=== PATIENT | female | born 1970 | race Caucasian/White ===

== ENCOUNTER 2021-12-12 08:21 | Emergency (ER) | payer SELFPAY ==
--- NOTE | ~2021-12-12 | XR_ITS ---
EXAMINATION: XR foot RT min 3V DATE: 12/12/2021 09:13 INDICATION: Right foot injury. TECHNIQUE: 4 views of right foot were obtained. COMPARISON: None. FINDINGS: There is a transverse fracture of proximal diaphysis of fifth metatarsal in near-anatomic a lignment. 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 There is an enthesophyt e at posterior aspect of calcaneal tuberosity. IMPRESSION: 1. Nondisplaced transverse fracture of proximal diaphysis of fifth metatarsal. Reviewed, dictated and finalized at location B.
[2021-12-12 08:21] VITALS: BP 147/95; PULSE 78; RESP 16; TEMP 36.6; O2SAT 98
--- NOTE | 2021-12-12 08:46 | ED.LOWEXIN ---
HPI - Extremity Injury (Lower) General Chief Complaint: Extremity Injury, Lower Stated Complaint: Right ankle injury Time Seen by Provider: 12/12/21 08:45 Source: patient and RN notes reviewed Mode of arrival: ambulatory Limitations: no limitations History of Present Illness complaint: ankle injury Onset (ago): day(s) (1) Injury: Right: ankle and foot Type of Injury: inversion Place: home Severity: moderate Relieving factors: rest Exacerbating factors: weight bearing, movement and palpation Context: walking Associated symptoms: able to partially bear weight Other symptoms: none Related Data Allergies Allergy/AdvReac Type Severity Reaction Status Date / Time morphine Allergy Unknown Unknown Verified 06/15/21 10:20 Sulfa (Sulfonamide Allergy Hives Verified 06/15/21 10:20 Antibiotics) Review of Systems Review of Systems: All systems reviewed & are unremarkable except as noted in HPI and below Constitutional: Constitutional: Denies chills and Denies fever(s) Genitourinary: Genitourinary: Reports hematuria and Reports nocturia (x 1 week) [facility] Past Medical History Medical History Anxiety Asthma GERD (gastroesophageal reflux disease) History of depression Hypothyroidism delivered by caesarean section, 1,000-1,249 grams, 29-30 completed weeks 1991 delivered by caesarean section, 1,000-1,249 grams, 29-30 completed weeks 1993 Spinal stenosis of lumbar region with neurogenic claudication Surgical History Surgical History H/O: hysterectomy 1999 History of partial hysterectomy 1997 Family History Family History Mother Hypertension Family history of heart disease in male family member before age 55 Patient's mother is in good health Cerebrovascular accident Family history of type 2 diabetes mellitus Father Family history of heart disease in male family member before age 55 Sibling Patient's brother is in good health Mother Diabetes mellitus Hypertension Asthma Father Family history of alcoholism Other Family history of cardiovascular disease Social History Social History Social History: -live alone with grand-daughter. 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 Gender identity (if verbalized by the patient): Female Sexual Orientation (if Verbalized by the Patient): Lesbian, Suero, or Homosexual Agree to blood products: Yes Exam Const: General: healthy appearing, no acute distress and alert Nutritional Appearance: well nourished Orientation/consciousness: patient oriented x3 Limitations: no limitations HENMT: Head: normal to inspection Ears: external ears normal Eyes: Conjunctivae: conjunctivae normal Pupils: Equal, round and reactive pupils present EOM: EOMs intact bilaterally Neck: Neck: normal visual inspection Resp: Effort & Inspection: normal respiratory effort Auscultation: clear to auscultation bilaterally Cardio: Rate: regular rate Rhythm: regular rhythm GI: GI Palp: Yes Soft to palpation and No Tenderness to palpation present (GI) Auscultation: normal bowel sounds Back/Spine/Pelvis: Cervical Spine: cervical ROM normal Thoracic/Lumbar Spine: thoraco-lumbar ROM normal Skin: General skin exam: normal color Rashes: no rashes Neuro: General: patient oriented x3, moves all extremities, no focal motor deficits and CN's II-XI intact bilaterally Speech: normal speech Extrem: General: normal exam except as noted Right lower extremity: ankle Details: n
[2021-12-12 09:24] LABS: Appearance Urine Slightly Cloudy (Clear); Bilirubin Urine Negative (Negative); Blood Urine 3+ (Negative); Glucose Urine UA Negative (Negative); Ketones Urine Negative (Negative); Leukocyte Esterase Ur 3+ LEU/UL (Negative); Nitrate Urine Negative (Negative); Protein Urine Negative (Negative); Urobilinogen Urine 0.2 mg/dL (0.2-1.0); pH Urine 7.5 (5.0-8.0)
[2021-12-12 09:29] LABS: Add Urine Microscopic? YES; Color Urine Light Yellow (Yellow)
[2021-12-12 09:30] LABS: Bacteria Urine 3+ /hpf; Squamous Epithelial Cell Urine Moderate /hpf (Few); WBC Urine 31-50 /hpf (0-3)
--- NOTE | 2021-12-12 09:34 | PC.NURSE ---
PT HAS RETURNED FROM RADIOLOGY, IS AWAITING URINE RESULTS. PT REPORTED TO ERP THAT SHE HAS NOTICED BLOOD IN HER URINE AND FREQUENCY X 1 WEEK.
[2021-12-12 09:50] VITALS: BP 148/98; PULSE 72; RESP 16; O2SAT 99
--- NOTE | 2021-12-12 10:11 | PC.NURSE ---
+PMS POST BOOT APPLICATION .
== END 2021-12-12 09:50 | disposition home or self-care (01) ==
PROVIDERS: Emergency Provider Emergency Medicine; PCP Family Medicine
DX: S92.354A Nondisplaced fracture of fifth metatarsal bone, right foot, initial encounter for closed fracture (principal); N39.0 Urinary tract infection, site not specified; J45.909 Unspecified asthma, uncomplicated; K21.9 Gastro-esophageal reflux disease without esophagitis; E03.9 Hypothyroidism, unspecified; M48.062 Spinal stenosis, lumbar region with neurogenic claudication; F41.9 Anxiety disorder, unspecified; F32.A Depression, unspecified; F17.290 Nicotine dependence, other tobacco product, uncomplicated; X50.1XXA Overexertion from prolonged static or awkward postures, initial encounter
CPT/HCPCS: 73630; 81001; 87086; 99284; L2112

== ENCOUNTER 2022-04-22 16:16 | Emergency (ER) | payer SELFPAY ==
--- NOTE | ~2022-04-22 | XR_ITS ---
EXAMINATION: XR chest 1V portable Exam Date/Time: 04/22/2022 16:26 INSIDE SALES ADVISOR HISTORY: cough, dyspnea Comparison: 06/29/2011. RESULT: Lines, tubes, and devices: None. Lungs and pleura: Low volumes with crowding, otherwise clear. Cardiomediastinal silhouette: Stable. Other: No acute osseous or upper abdominal finding. IMPRESSION: No acute cardiopulmonary process. Reviewed, dictated and finalized at location K. DE SALES ADVISOR
[2022-04-22 16:20] VITALS: BP 148/100; PULSE 75; RESP 20; TEMP 36.4; O2SAT 97
--- NOTE | 2022-04-22 16:30 | ECG_ITS ---
Measurements Intervals [place] Rate: 68 P: 32 CT: 196 QRS: -7 QRSD: 110 T: 17 QT: 407 QTc: 436 Interpretive Statements SINUS RHYTHM LOW QRS VOLTAGE IN PRECORDIAL LEADS [QRS DEFLECTION < 1.0 mV IN CHEST LEADS] POOR R-WAVE PROGRESSION NO PREVIOUS ECG AVAILABLE FOR COMPARISON Electronically Signed On 04-22-2022 18:43:19 BOILER COVERER HELPER by Cassidy Espinoza M.D.
--- NOTE | 2022-04-22 16:31 | ED.GENADULT ---
HPI - General Adult General Chief complaint: Upper Respiratory Infection Stated complaint: uri Time Seen by Provider: 04/22/22 16:20 History of Present Illness HPI narrative: Keegan is a 52F with a PMH of asthma, HLD, hypothyroidism, GERD and spinal stenosis that presented to the ED with 10 days or so of URI type symptoms. It started with a fever, fatigue, cough and congestion. However, now it has progressed to weakness, dyspnea and intermittent chest pain. Related Data Allergies Allergy/AdvReac Type Severity Reaction Status Date / Time morphine Allergy Unknown Unknown Verified 01/11/22 14:10 Sulfa (Sulfonamide Allergy Hives Verified 01/11/22 14:10 Antibiotics) Review of Systems Review of Systems: All systems reviewed & are unremarkable except as noted in HPI and below PMFSH Past Medical History Medical History Anxiety Asthma GERD (gastroesophageal reflux disease) History of depression Hypothyroidism delivered by caesarean section, 1,000-1,249 grams, 29-30 completed weeks 1991 delivered by caesarean section, 1,000-1,249 grams, 29-30 completed weeks 1993 Spinal stenosis of lumbar region with neurogenic claudication Surgical History Surgical History H/O: hysterectomy 1999 History of partial hysterectomy 1997 Status post right foot surgery Family History Family History Mother Hypertension Family history of heart disease in male family member before age 55 Patient's mother is in good health Cerebrovascular accident Family history of type 2 diabetes mellitus Father Family history of heart disease in male family member before age 55 Sibling Patient's brother is in good health Mother Diabetes mellitus Hypertension Asthma Father Family history of alcoholism Other Family history of cardiovascular disease Social History Social History Social History: -live alone with grand-daughter. Smoking status: Current every day smoker Tobacco type: e-cigarettes/vaping Second hand tobacco smoke exposure: No Smoking end date: 03/11/14 Alcohol intake: current Alcohol use details: 1/2 glass wine, twice a year Substance use: never Substance use type: does not use Lack of Transportation: No Lack of Food: Never True Current Housing: I Have Housing Concerned About Future Housing: No Difficulty Paying Gas/Electric Bills: No Difficulty Paying for Meds: No Currently Unemployed: No Education: High School Diploma/GED Difficulty w/ Childcare or Family Care: No Living arrangements: with family Occupation/Education: occupation 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 Gender identity (if verbalized by the patient): Female Sexual Orientation (if Verbalized by the Patient): Lesbian, Suero, or Homosexual Agree to blood products: Yes Exam Const: General: healthy appearing and no acute distress Nutritional Appearance: well nourished Other: sitting in the chair HENMT: Head: normal to inspection Ears: external ears normal Eyes: Conjunctivae: conjunctivae normal Pupils: Equal, round and reactive pupils present Neck: Neck: normal visual inspection Chest: Chest palpation & inspection: normal inspection of the chest Resp: Effort & Inspection: normal respiratory effort Auscultation: clear to auscultation bilaterally Cardio: Rate: regular rate Rhythm: regular rhythm GI: Inspection: non-distended Skin: General skin exam: normal color Rashes: no rashes Neuro: General: patient oriented x3 and moves all extremities Extrem: General: normal to inspection Psych: Mental Status: mental status grossly normal Affect: normal affect Course Course Emergency Course: Ordered labs, CXR,
--- NOTE | 2022-04-22 16:45 | PC.NURSE ---
report to ashwin rao. no questions or concerns
[2022-04-22 16:58] LABS: Basophils Absolute Auto 0.07 K/mm3 (0.00-0.10); Basophils Percent Auto 0.7 % (0.0-1.0); Eosinophils Absolute Auto 0.38 K/mm3 (0.02-0.50); Hematocrit 41.7 % (35.0-49.0); Hemoglobin 13.9 g/dL (12.0-15.0); Immature Granulocyte Absolute 0.03 K/mm3 (0.00-0.00); Immature Granulocyte Percent A 0.3 % (0.0-0.0); Lymphocytes Absolute Auto 2.19 K/mm3 (1.10-4.50); Lymphocytes Percent Auto 23.1 % (18.0-42.0); Mean Corpuscular HGB Conc 33.3 g/dL (32.0-36.0); Mean Corpuscular Hemoglobin 31.5 pg (27.0-31.0); Mean Corpuscular Volume 94.6 fL (78.0-102.0); Mean Platelet Volume 9.8 fl (9.2-11.8); Monocytes Absolute Auto 0.96 K/mm3 (0.10-0.90); Monocytes Percent Auto 10.1 % (2.0-11.0); Neutrophils Absolute Auto 5.9 K/mm3 (1.7-7.2); Neutrophils Percent Auto 61.8 % (50.0-70.0); Platelet Count Result 319 K/mm3 (150-420); Red Blood Count 4.41 M/mm3 (4.20-5.40); Red Cell Distribution Width 12.9 % (11.6-14.4); White Blood Count 9.5 K/mm3 (4.8-10.8)
[2022-04-22 16:59] LABS: Add Urine Microscopic? YES; Bilirubin Urine Negative (Negative); Blood Urine 2+ (Negative); Color Urine Light Yellow (Yellow); Glucose Urine UA Negative (Negative); Ketones Urine Negative (Negative); Leukocyte Esterase Ur 3+ LEU/UL (Negative); Nitrate Urine Negative (Negative); Protein Urine Negative (Negative); Specific Grav Ur 1.015 (1.010-1.020); Urobilinogen Urine 0.2 mg/dL (0.2-1.0)
[2022-04-22 17:11] LABS: Appearance Urine Slightly Cloudy (Clear); WBC Clumps Urine Present /hpf; WBC Urine 21-30 /hpf (0-3)
[2022-04-22 17:12] LABS: Bacteria Urine 1+ /hpf; Squamous Epithelial Cell Urine Few /hpf (Few)
[2022-04-22 17:14] LABS: Influenza A QL RT-PCR Negative (Negative); Influenza B QL RT-PCR Negative (Negative); SARS-CoV-2 RNA PCR Negative (Negative)
[2022-04-22 17:15] LABS: RSV RNA, RT-PCR Negative (Negative)
[2022-04-22 17:19] LABS: Alanine Aminotransferase 26 U/L (14-59); Albumin Level 3.5 g/dL (3.4-5.0); Alkaline Phosphatase 82 U/L (46-116); Anion Gap 9 mmol/L (8-16); Aspartate Amino Transferase 13 U/L (15-37); Bilirubin,Total 0.4 mg/dL (0.00-1.00); Blood Urea Nitrogen 17 mg/dL (7-18); Calcium 8.4 mg/dL (8.5-10.1); Carbon Dioxide 26 mmol/L (21-32); Chloride 102 mmol/L (98-108); Estimated CRCL calculation 76 ml/min; Estimated Glomerular Filt Rate > 60; Glucose 92 mg/dL (70-99); NT Pro B Type Natriuretic Pept 54 pg/mL (0-125); Osmolality Calculated 285 mOsm/kg (285-295); Potassium 3.9 mmol/L (3.5-5.1); Sodium 137 mmol/L (136-145); Total Protein 7.4 g/dL (6.4-8.2); Troponin I < 4.0 ng/L (0.00-60.4)
[2022-04-22] MEDS: cefTRIAXone 1 GM VIAL IM (17:55)
[2022-04-22] MEDS: LIDOCAINE HCL 1% LOCAL INJ 10 ML VIAL 2.1 ML INFILTRATE (17:56)
[2022-04-22 17:59] VITALS: BP 139/89; PULSE 74; RESP 18; TEMP 36.7; O2SAT 98
--- NOTE | 2022-04-25 12:43 | PC.NURSE ---
FINAL URINE CULTURE RESULTS: GREATER THAN 100,000 CFU/ML OF GROUP B STREP ISOLATED. PER DR OCASIO NO ACTION NEEDED.
== END 2022-04-22 18:04 | disposition home or self-care (01) ==
PROVIDERS: Emergency Provider Family Medicine
DX: J06.9 Acute upper respiratory infection, unspecified (principal); N39.0 Urinary tract infection, site not specified; E03.9 Hypothyroidism, unspecified; J45.909 Unspecified asthma, uncomplicated; F17.290 Nicotine dependence, other tobacco product, uncomplicated; Z20.822 Contact with and (suspected) exposure to COVID-19
CPT/HCPCS: 36415; 71045; 80053; 81001; 83880; 84484; 85025; 87077; 87086; 87088; 87637; 93005; 96372; 99284; J0696

== ENCOUNTER 2022-08-20 14:52 | Outpatient (CLI) | payer SELFPAY ==
[2022-08-20 19:10] LABS: Basophils Absolute Auto 0.1 K/mm3 (0.0-0.1); Basophils Percent Auto 0.8 % (0.2-1.2); Eosinophils Absolute Auto 0.3 K/mm3 (0-0.3); Eosinophils Percent Auto 3.8 % (0-4.4); Hematocrit 43.1 % (37.0-47.0); Hemoglobin 14.3 g/dL (12.0-15.0); Immature Granulocyte Absolute 0.03 K/mm3 (0.00-0.031); Immature Granulocyte Percent A 0.3 % (0-0.5); Lymphocytes Absolute Auto 2.43 K/mm3 (0.9-3.2); Lymphocytes Percent Auto 27.4 % (18.3-44.2); Mean Corpuscular HGB Conc 33.2 g/dl (32-36); Mean Corpuscular Hemoglobin 31.2 pg (26-34); Mean Corpuscular Volume 94.1 fl (80-100); Mean Platelet Volume 10.9 fl (7.4-10.4); Monocytes Percent Auto 11.5 % (2.6-8.5); Neutrophils Percent Auto 56.2 % (45.5-73.1); Platelet Count Result 337 k/mm3 (150-375); Red Blood Count 4.58 M/mm3 (4.2-5.4); Red Cell Distribution Width 13.7 % (11.5-14.5); White Blood Count 8.9 K/mm3 (4.5-10.0)
[2022-08-20 21:01] LABS: Magnesium 2.1 mg/dL (1.6-2.3)
[2022-08-20 21:30] LABS: Vitamin D 25 Hydroxy 14.5 ng/mL
== END 2022-08-20 14:53 | disposition home or self-care (01) ==
LOC: ANHGOSHLAB 14:54
PROVIDERS: PCP Family Medicine; Visit Provider Nurse Practitioner Family
DX: Z00.00 Encounter for general adult medical examination without abnormal findings (principal); Z12.31 Encounter for screening mammogram for malignant neoplasm of breast; E53.8 Deficiency of other specified B group vitamins; G25.81 Restless legs syndrome
CPT/HCPCS: 36415; 82306; 82607; 83735; 85025

== ENCOUNTER 2023-08-14 19:26 | Emergency (ER) | payer OTHER, SELFPAY ==
--- NOTE | ~2023-08-14 | XR_ITS ---
XR chest 1V portable Ordering provider: Bruno Villa MD History: 53 years Female with . RT upper back/CP . Comparison: April 22, 2022 FINDINGS: MEDIASTINUM: The cardiac silhouette is not enlarged. LUNGS: No infiltrates, effusions or pneumothorax. OTHER: Degenerative spine. No free air under the diaphragm. IMPRESSION: No acute cardiopulmonary pathology. Reviewed, dictated and finalized at location A.
[2023-08-14 19:26] VITALS: BP 174/112; PULSE 82; RESP 18; TEMP 36.6; O2SAT 97
[2023-08-14 19:29] VITALS: BP 147/112; PULSE 78; RESP 20; TEMP 36.9; O2SAT 97
--- NOTE | 2023-08-14 19:34 | PC.NURSE ---
ER Provider at the bedside
--- NOTE | 2023-08-14 19:41 | ECG_ITS ---
[address] Test Date: 2023-08-14 Pat Name: Keegan Barraza Department: Room: Gender: F Practice Office Associate: : [id number] Requested By: Bruno Moncada Order Number: [id number] Reading MD: Bear Mauricio M.D. Measurements Intervals [place] Rate: 67 P: 43 MO: 207 QRS: 2 QRSD: 110 T: 26 QT: 396 QTc: 420 Interpretive Statements SINUS RHYTHM LOW QRS VOLTAGE IN PRECORDIAL LEADS [QRS DEFLECTION < 1.0 mV IN CHEST LEADS] INCOMPLETE RIGHT BUNDLE BRANCH BLOCK ANTERIOR MYOCARDIAL INFARCTION , PROBABLY OLD [40+ ms Q WAVE AND/OR ST/T ABNORMALITY IN V3/V4] No previous ECG available for comparison Electronically Signed On 08-15-2023 13:32:43 CDT by Bear Mauricio M.D.
--- NOTE | 2023-08-14 19:45 | PC.NURSE ---
amanda Dorado, at the bedside doing EKG.
--- NOTE | 2023-08-14 19:51 | PC.NURSE ---
xray at the bedside
--- NOTE | 2023-08-14 19:56 | PC.NURSE ---
patient ambulated to the bathroom to give urine sample
--- NOTE | 2023-08-14 20:06 | PC.NURSE ---
blood work sent to lab
[2023-08-14 20:07] LABS: Basophils Absolute Auto 0.06 K/mm3 (0.00-0.10); Basophils Percent Auto 0.6 % (0.0-1.0); Eosinophils Absolute Auto 0.43 K/mm3 (0.02-0.50); Eosinophils Percent Auto 4.2 % (1.0-6.0); Hematocrit 42.8 % (35.0-49.0); Hemoglobin 14.3 g/dL (12.0-15.0); Immature Granulocyte Absolute 0.03 K/mm3 (0.00-0.00); Immature Granulocyte Percent A 0.3 % (0.0-0.0); Lymphocytes Absolute Auto 2.87 K/mm3 (1.10-4.50); Lymphocytes Percent Auto 28.1 % (18.0-42.0); Mean Corpuscular HGB Conc 33.4 g/dL (32-36); Mean Corpuscular Hemoglobin 31.3 pg (27.0-31.0); Mean Corpuscular Volume 93.7 fL (78.0-102.0); Monocytes Absolute Auto 0.98 K/mm3 (0.10-0.90); Monocytes Percent Auto 9.6 % (2.0-11.0); Neutrophils Absolute Auto 5.86 K/mm3 (1.70-7.20); Neutrophils Percent Auto 57.2 % (50.0-70.0); Platelet Count Result 345 K/mm3 (150-420); Red Blood Count 4.57 M/mm3 (4.20-5.40); Red Cell Distribution Width 13.6 % (11.6-14.4); White Blood Count 10.2 K/mm3 (4.8-10.8)
[2023-08-14 20:08] LABS: Appearance Urine Sl Cloudy (Clear); Bilirubin Urine Negative (Negative); Blood Urine 3+ (Negative); Color Urine Yellow (Yellow); Glucose Urine UA Negative (Negative); Ketones Urine Negative (Negative); Leukocyte Esterase Ur 3+ LEU/UL (Negative); Nitrate Urine Negative (Negative); Protein Urine Negative (Negative); Urobilinogen Urine 0.2 mg/dL (0.2-1.0)
[2023-08-14] MEDS: KETOROLAC 15 MG/ML VIAL (*BKC) IV PUSH (20:09)
[2023-08-14] MEDS: ACETAMINOPHEN 500 MG TABLET 1000 MG PO (20:09)
--- NOTE | 2023-08-14 20:14 | PC.NURSE ---
patient declined the valium. states i have to drive home. i dont want to be loopy . ER provider notified
--- NOTE | 2023-08-14 20:20 | ED.GENADULT ---
HPI - General Adult General Chief complaint: Back Pain/Injury Stated complaint: flank pain Time Seen by Provider: 08/14/23 19:44 History of Present Illness HPI narrative: This is a 53-year-old female presenting ED with chief complaint of back and flank pain. Patient on the right side of patient's back underneath her shoulder blades she has pain that she describes sharp. It is worse with movement. It started after she moved, associated with shortness of breath. She denies fevers chills cough or lower extremity edema. She does have remote history of a unprovoked DVT T/ PE at 20 years of age. Patient also has been having urinary urgency and frequency for the last several weeks. These have been treated with 2 rounds of antibiotics by her primary care physician but her symptoms have not resolved. Related Data Allergies Allergy/AdvReac Type Severity Reaction Status Date / Time morphine Allergy Unknown Unknown Verified 05/31/23 10:48 Sulfa (Sulfonamide Allergy Hives Verified 05/31/23 10:48 Antibiotics) [facility] Past Medical History Medical History Anxiety Asthma GERD (gastroesophageal reflux disease) History of depression Hypothyroidism delivered by caesarean section, 1,000-1,249 grams, 29-30 completed weeks 1991 delivered by caesarean section, 1,000-1,249 grams, 29-30 completed weeks 1993 Spinal stenosis of lumbar region with neurogenic claudication Surgical History Surgical History H/O: hysterectomy 1999 History of partial hysterectomy 1997 Status post right foot surgery Family History Family History Mother Hypertension Family history of heart disease in male family member before age 55 Patient's mother is in good health Cerebrovascular accident Family history of type 2 diabetes mellitus Father Family history of heart disease in male family member before age 55 Sibling Patient's brother is in good health Mother Diabetes mellitus Hypertension Asthma Father Family history of alcoholism Other Family history of cardiovascular disease Social History Social History Social History: -live alone with grand-daughter. Smoking status: Current every day smoker Tobacco type: e-cigarettes/vaping Second hand tobacco smoke exposure: No Smoking end date: 03/11/14 Alcohol intake: current Alcohol use details: 1/2 glass wine, twice a year Substance use: never Substance use type: does not use Lack of Transportation: No Lack of Food: Never True Current Housing: I Have Housing Concerned About Future Housing: No Difficulty Paying Gas/Electric Bills: No Difficulty Paying for Meds: No Currently Unemployed: No Education: High School Diploma/GED Difficulty w/ Childcare or Family Care: No Living arrangements: with family Occupation/Education: occupation 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 Patient groans when going from standing to sitting. Head: atraumatic. EYES: EOMI, NOSE: Atraumatic NECK/back: Trachea midline RESPIRATORY: No increased rate of breathing, CTAB, speaking in full sentences. CARDIOVASCULAR: RRR, ABDOMINAL: Non-distended MUSCULOSKELETAl: No obvious deformities, tenderness to palpation along the right paraspinal muscles in the thoracic region, no overlying skin changes. NEURO: Alert. Moving 4/4 extremities SKIN:: Warm, dry. Normal color PSYCHIATRIC: Normal affect Course Vital Signs Vital signs: Vital Signs Temperature 97.9 F 08/14/23 19:26 Pu
[2023-08-14 20:21] LABS: Add Urine Microscopic? YES; Bacteria Urine 2+ /hpf; INR 0.9; Partial Thromboplastin Time 31.6 Sec (23.9-30.70); Prothrombin Time 10.3 Seconds (9.50-12.1); Squamous Epithelial Cell Urine Rare /hpf (Few); WBC Urine 31-50 /hpf (0-3)
[2023-08-14 20:22] LABS: D Dimer 0.35 mg/L (0.19-0.50)
[2023-08-14 20:34] LABS: Alanine Aminotransferase 35 U/L (14-59); Albumin Level 3.5 g/dL (3.4-5.0); Alkaline Phosphatase 86 U/L (46-116); Anion Gap 8 mmol/L (4-12); Aspartate Amino Transferase 21 U/L (15-37); Bilirubin,Total 0.2 mg/dL (0.00-1.00); Blood Urea Nitrogen 15 mg/dL (7-18); Carbon Dioxide 28 mmol/L (21-32); Chloride 103 mmol/L (98-108); Estimated CRCL calculation 79 ml/min; Estimated Glomerular Filt Rate 58; Glucose 98 mg/dL (70-99); Lipase 59 U/L (16-77); NT Pro B Type Natriuretic Pept 29 pg/mL (0-125); Osmolality Calculated 288 mOsm/kg (285-295); Potassium 4.1 mmol/L (3.5-5.1); Sodium 139 mmol/L (136-145); Total Protein 7.6 g/dL (6.4-8.2)
[2023-08-14 20:35] LABS: Magnesium 1.9 mg/dL (1.8-2.4); Troponin I < 4.0 ng/L (0.00-60.4)
[2023-08-14 21:41] VITALS: BP 142/97; PULSE 80; RESP 18; O2SAT 100
--- NOTE | 2023-08-17 12:08 | PC.NURSE ---
Final urine culture report, No growth, no further action or treatment needed.
== END 2023-08-14 21:42 | disposition home or self-care (01) ==
PROVIDERS: Emergency Provider Emergency Medicine; PCP Family Medicine
DX: M54.9 Dorsalgia, unspecified (principal); N39.0 Urinary tract infection, site not specified; E03.9 Hypothyroidism, unspecified; F17.210 Nicotine dependence, cigarettes, uncomplicated
CPT/HCPCS: 36415; 71045; 80053; 81001; 83690; 83735; 83880; 84484; 85025; 85380; 85610; 85730; 87086; 93005; 96365; 96375; 99284; J0696; J1885

== ENCOUNTER 2023-10-10 15:35 | Outpatient (CLI) | payer OTHER, SELFPAY ==
[2023-10-10 19:57] LABS: Cortisol Random 5.27 ug/dL
[2023-10-11 22:29] LABS: DHEA-Sulfate 74 mcg/dL (5-167)
[2023-10-14 16:59] LABS: Testosterone Total 17 ng/dL (2-45)
[2023-10-15 18:03] LABS: Estrogen 169 pg/mL
== END 2023-10-10 15:36 | disposition home or self-care (01) ==
LOC: ANHGOSHLAB 15:36
PROVIDERS: PCP Family Medicine; Visit Provider Nurse Practitioner Family
DX: E03.9 Hypothyroidism, unspecified (principal); E78.5 Hyperlipidemia, unspecified; F41.9 Anxiety disorder, unspecified; N39.0 Urinary tract infection, site not specified; N89.8 Other specified noninflammatory disorders of vagina; R61 Generalized hyperhidrosis; R68.89 Other general symptoms and signs
CPT/HCPCS: 36415; 82533; 82627; 82672; 84403; 84443

== ENCOUNTER 2024-03-11 13:03 | Emergency (ER) | payer OTHER, SELFPAY ==
[2024-03-11] VITALS (7 sets, daily range): BP systolic 149–158; BP diastolic 81–100; PULSE 62–78; RESP 16–20; TEMP 36.6; O2SAT 95–97
--- NOTE | ~2024-03-11 | CT_ITS ---
EXAMINATION: CTA chest PE protocol DATE: 03/11/2024 15:12 INDICATION: elev dimer/syncope TECHNIQUE: Computed tomography angiography (CTA) of the chest was performed with 100 mL Omnipaque-350 intravenous contrast timed to evaluate the pulmonary arteries. Coronal maximum intensity projection 3D-reconstructions were created by the technologist. The dose-length product (DLP) was 904.07 mGy-cm. Automated exposure control and iterative reconstruction technique were employed. COMPARISON: None. FINDINGS: Lung parenchyma and airways: Mild emphysematous change. Scattered calcified granulomas. Tiny foci of inflammatory change/scar in the dependent right lung base, otherwise clear. Patent airways. Pleura: Unremarkable. Thoracic inlet, axillae and chest wall: Unremarkable. Thoracic aorta: Ascending aortic ectasia measuring up to 4.2 cm. No dissection. Mild arch calcificati on. Bovine arch. Mediastinum: Normal. Heart and pericardium: Normal. Coronary artery calcifications: Mild. Upper abdomen: Geographic fatty infiltration of the liver. Bones: No acute osseous finding. Chronic appearing multilevel mild height loss and anterior wedge def ormity in the lower thoracic spine. Pulmonary arteries: Study quality: Adequate. No pulmonary emboli detected. IMPRESSION: No CT evidence of acute pulmonary embolus. No acute process detected in the chest. Ascending aortic ectasia. Geographic liver steatosis. Reviewed, dictated and finalized at location K. NO ASSISTANT MANAGER
--- NOTE | ~2024-03-11 | XR_ITS ---
EXAM: XR knee LT min 4V DATE: 03/11/2024 14:26 HISTORY: fall today, all over knee pain, LROM-best attainable . COMPARISON: None available. FINDINGS: Normal mineralization. No fracture or dislocation. No lytic or blastic lesion. Severe tric ompartmental osteoarthritis. No erosion or periosteal change. Large volume joint fluid. IMPRESSION: No acute osseous finding in the left knee. Reviewed, dictated and finalized at location K. OM STOCK MAKER
--- NOTE | ~2024-03-11 | CT_ITS ---
EXAMINATION: CT cervical spine wo con DATE: 03/11/2024 14:20 INDICATION: fall today TECHNIQUE: Computed tomography (CT) of the cervical spine was performed without intravenous contrast. Automated exposure control and iterative reconstruction technique were employed. The dose-length pro duct was 566.73 mGy-cm. COMPARISON: None. FINDINGS: Vertebral Body Alignment: Intact. Craniocervical and atlantoaxial alignment: Minimal degenerative change. Alignment intact. Osseous structures/fracture: No evidence of a lytic or blastic process in the visualized spine. No e vidence of acute fracture. Cervical soft tissues: The paraspinal soft tissues planes are maintained. Degenerative changes: Mild multilevel facet arthropathy. No severe central canal or neuroforaminal na rrowing. IMPRESSION: No acute fracture or traumatic malalignment in the cervical spine. Reviewed, dictated and finalized at location K. DRESSING MACHINE FEEDER
--- NOTE | ~2024-03-11 | CT_ITS ---
EXAMINATION: CT brain wo con DATE: 03/11/2024 14:20 INDICATION: syncope/fall today . TECHNIQUE: Computed tomography (CT) of the head was performed without intravenous contrast. The mA wa s adjusted according to patient size. Iterative reconstruction technique was employed. The dose-lengt h product was 605.33 mGy-cm. COMPARISON: None. FINDINGS: No acute intracranial hemorrhage or extra-axial fluid collection. No hydrocephalus, mass, or herniation. No acute ischemic infarct. Unremarkable dural venous sinus attenuation. No acute osseous abnormality. The aerated spaces are clear. IMPRESSION: No acute intracranial process. Reviewed, dictated and finalized at location K. OR CONTACT CENTRE TEAM LEADER
--- NOTE | ~2024-03-11 | XR_ITS ---
EXAM: XR elbow RT min 3V, XR forearm RT 2V DATE: 03/11/2024 14:25 (accession [id number]), 03/11/2024 14:24 (accession [id number]) HISTORY: fall today, pain w/ movement to touch, LROM-best attainabl . COMPARISON: None available. FINDINGS: Normal mineralization. Longitudinally oriented radial head fracture resulting in a 1 mm ar ticular surface gap and 1 mm articular surface depression of the lateral two thirds of the radial hea d. No lytic or blastic lesion. Mild degenerative changes in the elbow and wrist. Medial and lateral e picondylar enthesopathy at the elbow. No erosion or periosteal change. Visualization of the posterior fat pad. Anterior displacement of the anterior fat pad. IMPRESSION: Longitudinal radial head fracture resulting in an articular surface gap and step-off. Reviewed, dictated and finalized at location K. RING ADMINISTRATIVE ASSISTANT IMPRESSION: Longitudinal radial head fracture resulting in an articular surface gap and step-off.
--- NOTE | 2024-03-11 13:07 | ED.FALL ---
HPI - Fall General Chief Complaint: Syncope Stated Complaint: FALL Time Seen by Provider: 03/11/24 13:07 Source: patient and family Mode of arrival: ambulatory Limitations: no limitations History of Present Illness HPI Narrative: patient is a 54-year-old female with a 1 time episode of chest pain that caused her to collapse and possibly syncope. If there was syncope, it was only a few seconds. This was a witnessed event. No seizure activity. No further chest pain. No shortness of breath. Patient sustained left knee and right upper extremity injury after the fall. She called EMS but refused and came to the ER by POV. complaint: fall Onset (ago): hour(s) (1) Fall from: standing Fall witnessed: yes, by bystander Place fall occurred: street Loss of consciousness: unsure Length of LOC: second(s) (5) Prolonged down time: no Symptoms prior to fall: chest pain ( X1 sharp pain event /episode on the left chest) Context: other ( patient had a fall secondary to chest pain and sustained some injuries) Location of injury: other ( Left knee and right upper extremity) Location of injury - extremities: Left: knee and Right: arm Severity: moderate Severity scale (1-10): 5 Quality: sharp Associated symptoms (after fall): chest pain and unable to walk Related Data Allergies Allergy/AdvReac Type Severity Reaction Status Date / Time morphine Allergy Unknown Unknown Verified 03/11/24 13:11 Sulfa (Sulfonamide Allergy Hives Verified 03/11/24 13:11 Antibiotics) Review of Systems Review of Systems: All systems reviewed & are unremarkable except as noted in HPI and below Constitutional: Constitutional: Reports no additional constitutional complaints Eyes: Eyes: Reports no additional eye complaints ENT: Reports system reviewed and no additional complaints, except as documented Cardiovascular: Cardiovascular: Reports no additional cardiovascular complaints Respiratory: Respiratory: Reports no additional respiratory complaints Gastrointestinal: Gastrointestinal: Reports no additional gastrointestinal complaints Genitourinary: Genitourinary: Reports no additional female genitourinary complaints Musculoskeletal: Musculoskeletal: Reports no additional musculoskeletal complaints Integumentary/Breasts: Skin/Breast: Reports system reviewed and no additional complaints, except as docu Neurologic: Reports system reviewed and no additional complaints, except as documented Psychiatric: Psychiatric: Reports no additional psychiatric complaints Endocrine: Endocrine: Reports no additional endocrine complaints Hematologic/Lymphatic: Hematologic/Lymphatic: Reports no additional hematologic/lymphatic complaints Allergic/Immunologic: Allergic/Immunologic: Reports no additional allergic/immunologic complaints PMFSH Past Medical History Medical History Essential (primary) hypertension Depression Obesity RLS (restless legs syndrome) Fracture of fifth metatarsal bone of right foot Asthma Hypothyroidism Spinal stenosis of lumbar region with neurogenic claudication GERD (gastroesophageal reflux disease) Anxiety Surgical History Surgical History Status post right foot surgery H/O: hysterectomy 2000 History of partial hysterectomy 1997 delivered by caesarean section, 1,000-1,249 grams, 29-30 completed weeks 1993 delivered by caesarean section, 1,000-1,249 grams, 29-30 completed weeks 1991 Family History Family History Mother Hypertension Family history of heart disease in male family member before age 55 Patient's mother is in good health Cerebrovascular accident Family history of type 2 diabetes mellitus Father Family history of heart disease in male family member before age 55 Sibling Patient's brother is in good health Mother Diabetes mellitus Hypertension Asthma Father Family history of alcoholism Other Family history of cardiovascular disease Social History Social History Social History: -live alone with grand-daughter. Smoking status: Current every day smoker Tobacco type: e-cigarettes/vaping Second hand tobacco smoke exposure: No Smoking end date: 03/11/14 Alcohol intake: current Alcohol use details: 1/2 glass wine, twice a year Substance use: never Substance use type: does not use Lack of Transportation: No Lack of Food: Never True Current Housing: I Have Housing Concerned About Future Housing: No Difficulty Paying Gas/Electric Bills: No Difficulty Paying for Meds: No Currently Unemployed: No Education: High School Diploma/GED Difficulty w/ Childcare or Family Care: No Living arrangements: with family Occupation/Education: occupation 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 She has no further complaints except the injuries from the event. HENMT: Head: normal to inspection Ears: external ears normal Face/Nose/Sinus: Normal external nose present Eyes: Conjunctivae: conjunctivae normal Pupils: Equal, round and reactive pupils present EOM: EOMs intact bilaterally Neck: Neck: normal visual inspection Chest: Chest palpation & inspection: normal inspection of the chest Resp: Effort & Inspection: normal respiratory effort, not labored and no retractions Auscultation: clear to auscultation bilaterally, no crackles and no rales Cardio: Rate: regular rate Rhythm: regular rhythm Heart sounds: no murmurs GI: Inspection: non-distended GI Palp: Yes Soft to palpation, No Tenderness to palpation present (GI) and No Guarding due to palpation present (GI) Auscultation: normal bowel sounds : General: Yes bladder normal to palpation Back/Spine/Pelvis: Back: no CVA tenderness Skin: General skin exam: normal color Rashes: no rashes Wounds: wound noted and wounds noted ( Right hand palmar surface has a small abrasion with dried blood ) Other: tetanus shot up-to-date last year Neuro: General: patient oriented x3, moves all extremities, no meningeal signs, no focal motor deficits and CN's II-XI intact bilaterally Cranial nerves: Yes Nystagmus not present Speech: normal speech Gait exam (Neuro): gait abnormal Other: patient requires assistance for walking due to the fact that she has a left knee injury since the fall Extrem: General: normal to inspection Psych: Mental Status: mental status grossly normal Affect: normal affect Attitude: cooperative Course Vital Signs Vital signs: Vital Signs Temperature 36.6 C 03/11/24 13:10 Pulse Rate 78 03/11/24 13:10 Respiratory Rate 20 03/11/24 13:10 Blood Pressure 152/100 H 03/11/24 13:10 Pulse Oximetry 97 03/11/24 13:10 Oxygen Delivery Room Air 03/11/24 13:10 Temperature 36.6 C 03/11/24 13:10 Pulse Rate 62 03/11/24 15:00 Respiratory Rate 17 03/11/24 15:00 Blood Pressure 153/88 H 03/11/24 15:00 Pulse Oximetry 95 03/11/24 15:00 Oxygen Delivery Room Air 03/11/24 14:30 MDM - Fall MDM Narrative Medical decision making narrative: patient is a 54-year-old female with a chest pain event and further had a syncope/fall event and then further sustained injuries of the left knee and the right upper extremity after the fall. Will do multiple body symptom workup to include cardiac, neuro a and musculoskeletal. workup was negative for syncope and cardiac and neuro evaluations. Unfortunately, she has fractured the right elbow significantly and with complexity. Local hospital was unable to care for this problem and further suggested [facility]. ER to ER trauma transfer at this time is planned to evaluate the right elbow fracture. Lab Data Attestation: I reviewed the patient's lab results. 03/11/24 13:27 03/11/24 13:27 Labs: Lab Results 03/11/24 03/11/24 Range/Units 12:40 13:27 WBC 6.2 (4.8-10.8) K/mm3 RBC 4.53 (4.20-5.40) M/mm3 Hgb 13.8 (12.0-15.0) g/dL Hct 41.2 (35.0-49.0) % MCV 90.9 (78.0-102.0) fL MCH 30.5 (27.0-31.0) pg MCHC 33.5 (32-36) g/dL RDW 13.5 (11.6-14.4) % Plt Count 325 (150-420) K/mm3 MPV 9.9 (9.2-11.8) fl Immature Gran % (Auto) 0.3 H (0.0-0.0) % Neut % (Auto) 59.1 (50.0-70.0) % Lymph % (Auto) 22.8 (18.0-42.0) % [place] % (Auto) 9.5 (2.0-11.0) % Eos % (Auto) 7.3 H (1.0-6.0) % Baso % (Auto) 1.0 (0.0-1.0) % Lymph # (Auto) 1.41 (1.10-4.50) K/mm3 [place] # (Auto) 0.59 (0.10-0.90) K/mm3 Eos # (Auto) 0.45 (0.02-0.50) K/mm3 Baso # (Auto) 0.06 (0.00-0.10) K/mm3 Abs Immat Gran (auto) 0.02 H (0.00-0.00) K/mm3 Absolute Neuts (auto) 3.66 (1.70-7.20) K/mm3 Absolute Nucleated RBC 0.00 (0.00-0.00) K/mm3 Nucleated RBC % 0.0 (0-0.0) % PT 11.0 (9.50-12.1) Seconds INR 1.0 APTT 32.8 H (23.9-30.70) Sec D-Dimer 0.74 H* (0.19-0.50) mg/L Sodium 141 (136-145) mmol/L Potassium 4.1 (3.5-5.1) mmol/L Chloride 105 (98-108) mmol/L Carbon Dioxide 26 (21-32) mmol/L Anion Gap 10 (4-12) mmol/L BUN 8 (7-18) mg/dL Creatinine 1.00 (0.55-1.02) mg/dL Estim Creat Clear Calc 78 ml/min Estimated GFR 58 L (59 - ) Glucose 98 (70-99) mg/dL Calculated Osmolality 290 (285-295) mOsm/kg Calcium 8.8 (8.5-10.1) mg/dL Total Bilirubin 0.6 (0.00-1.00) mg/dL AST 20 (15-37) U/L ALT 31 (14-59) U/L Alkaline Phosphatase 93 (46-116) U/L Troponin I < 4.0 (0.00-60.4) ng/L NT-Pro-B Natriuret Pep 27 (0-125) pg/mL Total Protein 7.1 (6.4-8.2) g/dL Albumin 3.5 (3.4-5.0) g/dL Urine Color Yellow (Yellow) Urine Appearance Sl cloudy A (Clear) Urine pH 7.0 (5.0-8.0) Ur Specific [place] 1.010 (1.010-1.020) Urine Protein Negative (Negative) Urine Glucose (UA) Negative (Negative) Urine Ketones Negative (Negative) Ur Blood (Man) 1+ H (Negative) Urine Nitrate Negative (Negative) Urine Bilirubin Negative (Negative) Urine Urobilinogen 0.2 (0.2-1.0) mg/dL Leukocyte Esterase Rfl 3+ H (Negative) BRANDON/UL Urine RBC 3-5 H (0-2) /hpf Urine WBC 31-50 H (0-3) /hpf Ur Squamous Epith Cells Few (Few) /hpf Urine Bacteria 2+ H (None) /hpf Imaging Data Attestation: I personally reviewed and interpreted this imaging study as follows: Radiologist's impression: x-ray of the right elbow/ right forearm shows IMPRESSION: Longitudinal radial head fracture resulting in an articular surface gap and step-off. CT scan of the head and neck were both negative for acute process left knee x-ray is negative for acute process CTA of the chest was negative for acute process ECG Data EKG #1: Attestation: I personally reviewed and interpreted this ECG as follows: ECG completion date: 03/11/24 ECG completion time: 13:28 EKG Interpretation: normal rate, sinus rhythm, no ectopy, non-specific ST changes, normal QRS, normal QT and NL axis Critical Care Time Critical Care Time Critical Care Time: Yes Total Critical Care Time: 45 Discharge Plan Discharge Clinical Impression: Atypical chest pain, Trauma Radial head fracture Qualifiers: Encounter type: initial encounter Fracture type: closed Fracture alignment: displaced Laterality: right Qualified Code(s): S52.121A - Displaced fracture of head of right radius, initial encounter for closed fracture UTI (urinary tract infection) Qualifiers: Urinary tract infection type: acute cystitis Hematuria presence: without hematuria Qualified Code(s): N30.00 - Acute cystitis without hematuria Fall Qualifiers: Encounter type: initial encounter Qualified Code(s): W19.XXXA - Unspecified fall, initial encounter Syncope Qualifiers: Syncope type: vasovagal syncope Qualified Code(s): R55 - Syncope and collapse Patient Disposition: Acute Care Hospital Condition: Stable Additional Instructions: Please follow-up with the primary doctor in the next week. We are treating the urinary infection. [facility] proceed to [facility] at this time for evaluation of the right elbow. Do not eat or drink. You will need further syncope workup as an outpatient with your primary doctor. Also chest pain workup as a primary doctor follow-up discussion. Come back to the ER with any recurrent chest pain or syncope episodes. I have ordered pain medication for your right elbow if discharged from [facility]. Patient Language: Northern Irish Prescriptions: New cephalexin 500 mg capsule 500 mg PO BID 7 Days Qty: 14 0RF hydrocodone-acetaminophen 5-325 mg tablet 1 tablet PO Q8H PRN (Reason: pain) Qty: 30 0RF No Action acetaminophen 500 mg tablet 1,000 mg PO TID PRN (Reason: erika) 7 Days Qty: 42 0RF buspirone 10 mg tablet 10 mg PO BID Qty: 180 1RF ropinirole 1 mg tablet 1 mg PO QHS Qty: 90 0RF amlodipine 5 mg tablet 5 mg PO DAILY Qty: 90 0RF omeprazole 20 mg capsule,delayed release(DR/EC) 20 mg PO DAILY Qty: 90 1RF levothyroxine 50 mcg tablet 50 mcg PO DAILY Qty: 90 0RF Rx Instructions: NEEDS APPOINTMENT FOR FURTHER REFILLS diclofenac sodium 75 mg tablet,delayed release (DR/EC) See Rx Instructions .ROUTE .COMPLEX Qty: 180 1RF Dose Instruction: Take 1 tablet by mouth twice daily Rx Instructions: Take 1 tablet by mouth twice daily paroxetine HCl [Paxil] 40 mg tablet 40 mg PO DAILY Qty: 90 1RF lorazepam 1 mg tablet 1 mg PO BID-TID Qty: 90 0RF Follow-up/Referrals: Dion Goldberg MD [Primary Care Provider] - Time of Disposition: 15:21
--- NOTE | 2024-03-11 13:09 | ECG_ITS ---
Test Date: 2024-03-11 13:23:44 Measurements Intervals [place] Rate: 68 P: 60 MN: 200 QRS: 22 QRSD: 115 T: 38 QT: 433 QTc: 463 Interpretive Statements SINUS RHYTHM LOW QRS VOLTAGE IN PRECORDIAL LEADS [QRS DEFLECTION < 1.0 mV IN CHEST LEADS] POOR R WAVE PROGRESSION Compared to ECG 08/14/2023 19:49:01 NO SIGNIFICANT CHANGES Electronically Signed On 03-13-2024 12:26:44 SET RIDER by Bear Mauricio M.D.
[2024-03-11 13:33] LABS: Basophils Absolute Auto 0.06 K/mm3 (0.00-0.10); Eosinophils Absolute Auto 0.45 K/mm3 (0.02-0.50); Eosinophils Percent Auto 7.3 % (1.0-6.0); Hematocrit 41.2 % (35.0-49.0); Hemoglobin 13.8 g/dL (12.0-15.0); Immature Granulocyte Absolute 0.02 K/mm3 (0.00-0.00); Immature Granulocyte Percent A 0.3 % (0.0-0.0); Lymphocytes Absolute Auto 1.41 K/mm3 (1.10-4.50); Lymphocytes Percent Auto 22.8 % (18.0-42.0); Mean Corpuscular HGB Conc 33.5 g/dL (32-36); Mean Corpuscular Hemoglobin 30.5 pg (27.0-31.0); Mean Corpuscular Volume 90.9 fL (78.0-102.0); Mean Platelet Volume 9.9 fl (9.2-11.8); Monocytes Absolute Auto 0.59 K/mm3 (0.10-0.90); Monocytes Percent Auto 9.5 % (2.0-11.0); Neutrophils Absolute Auto 3.66 K/mm3 (1.70-7.20); Neutrophils Percent Auto 59.1 % (50.0-70.0); Platelet Count Result 325 K/mm3 (150-420); Red Blood Count 4.53 M/mm3 (4.20-5.40); Red Cell Distribution Width 13.5 % (11.6-14.4); White Blood Count 6.2 K/mm3 (4.8-10.8)
[2024-03-11 13:51] LABS: Partial Thromboplastin Time 32.8 Sec (23.9-30.70)
[2024-03-11 13:52] LABS: D Dimer 0.74 mg/L (0.19-0.50)
[2024-03-11 13:54] LABS: Alanine Aminotransferase 31 U/L (14-59); Albumin Level 3.5 g/dL (3.4-5.0); Alkaline Phosphatase 93 U/L (46-116); Anion Gap 10 mmol/L (4-12); Aspartate Amino Transferase 20 U/L (15-37); Bilirubin,Total 0.6 mg/dL (0.00-1.00); Blood Urea Nitrogen 8 mg/dL (7-18); Calcium 8.8 mg/dL (8.5-10.1); Carbon Dioxide 26 mmol/L (21-32); Chloride 105 mmol/L (98-108); Estimated CRCL calculation 78 ml/min; Estimated Glomerular Filt Rate 58; Glucose 98 mg/dL (70-99); NT Pro B Type Natriuretic Pept 27 pg/mL (0-125); Osmolality Calculated 290 mOsm/kg (285-295); Potassium 4.1 mmol/L (3.5-5.1); Sodium 141 mmol/L (136-145); Total Protein 7.1 g/dL (6.4-8.2)
[2024-03-11 13:56] LABS: Troponin I < 4.0 ng/L (0.00-60.4)
[2024-03-11] MEDS: HYDROcodone/acetaminophen (*CRX) 5-325 MG TABLET 1 TAB PO (14:23)
[2024-03-11 14:47] LABS: Add Urine Microscopic? YES; Appearance Urine Sl Cloudy (Clear); Bilirubin Urine Negative (Negative); Blood Urine 1+ (Negative); Color Urine Yellow (Yellow); Glucose Urine UA Negative (Negative); Ketones Urine Negative (Negative); Leukocyte Esterase Ur 3+ LEU/UL (Negative); Nitrate Urine Negative (Negative); Protein Urine Negative (Negative); Urobilinogen Urine 0.2 mg/dL (0.2-1.0)
[2024-03-11 14:52] LABS: Bacteria Urine 2+ /hpf; Squamous Epithelial Cell Urine Few /hpf (Few); WBC Urine 31-50 /hpf (0-3)
[2024-03-11] MEDS: CEPHALEXIN 500 MG CAPSULE PO (15:36)
--- NOTE | 2024-03-11 15:52 | PC.NURSE ---
Patient transferred to [facility] ER via POV, chart and disc of images sent with patient.
--- NOTE | 2024-03-14 12:34 | PC.NURSE ---
FINAL URINE CULTURE REPORT; MIXED GENITAL KIM, NO FURTHER ACTION OR CHANGE IN TREATMENT PER DR. OCASIO.
--- OUTSIDE RECORDS SUMMARY | 2024-03-18 10:55 | XMS_ITS | Encounter Summary ---
Author Organization [facility] Address [address] [facility] [address] [place] [address] Care Team Providers Care Vice President Of Product Marketing Name Role Phone Jessica Zamora MD Primary Care Provider [phone] Encounter Details Date Type Department Care Team (Latest Contact Info) Description 12/19/2023 Travel Social History Tobacco Use Types Packs/Day Years Used Date Smoking Tobacco: Never Assessed Sex and Gender Information Value Date Recorded Sex Assigned at Not on file Gender Identity Not on file Sexual Orientation Not on file documented as of this encounter Plan of Treatment Upcoming Encounters Date Type Department Care Team (Late st Contact Info) Description 03/18/2024 11:00 AM BLEMISH REMOVER Office Visit [facility] - Urology [address] [place] [address] [address] [place] [address] Gabby Ayala, CLINICAL RESEARCH ADMINISTRATOR-[facility] [address] [facility] DEPT [place] [address] documented as of this encounter Visit Diagnoses Not on filedocumented in this encounter Care Teams Vice President Of Product Marketing Relationship Specialty Start Date End Date Jessica Zamora MD [address] [place] [address] PCP - General 10/11/15 02/11/24 documented as of this encounter
--- OUTSIDE RECORDS SUMMARY | 2024-03-18 10:55 | XMS_ITS | Referral Summary ---
Author Organization [facility] Address [address] [facility] [place] [address] Care Team Providers Care Buckle Sewer Name Role Phone Himanshu Goldberg MD Primary Care Provider Source Comments [facility],non-owned Affiliates and Associated Physician Practices is amultiple site organization consisting of ambulatory clinics and hospital sitesin [place], [place], [place] and [place]. This disclosure is being madepursuant to the Care Everywhere program and may not contain all information available regarding this patient. Last updated 17.[facility] Encounters Date Type Department Care Team Description 02/12/2024 Telephone [facility] - Centralized Scheduling [address] [place] [address] Gabby Ayala APRN-CNP Reschedule Appointment (02/11-Left message on home & cell # to reschedule 's 02/11 appt- reschedule to the next available. MyChart note entered.DLM-MS) 12/19/2023 Travel from Last 3 Months Social History Tobacco Use Types Packs/Day Years Used Date Smoking Tobacco: Never Assessed Sex and Gender Information Value Date Recorded Sex Assigned at Not on file Gender Identity Not on file Sexual Orientation Not on file Plan of Treatment Upcoming Encounters Date Type Department Care Team (Late st Contact Info) Description 03/18/2024 11:00 AM ELECTRICAL MACHINE BUILDER Office Visit [facility] - Urology [address] [place] [address] [address] [place] [id number] Gabby Ayala APRN-CNP [address] [facility] DEPT [place] [address] Care Teams Buckle Sewer Relationship Specialty Start Date End Date Himanshu Goldberg MD [address] [facility] [address] [place] [id number] PCP - General Family Medicine 02/12/24
--- OUTSIDE RECORDS SUMMARY | 2024-03-18 10:55 | XMS_ITS | Patient Health Summary ---
Author Organization [facility] Address [address] [place] [address] Care Team Providers Care Label Rewinder Name Role Phone Himanshu Goldberg MD Primary Care Provider Note from [facility],non-owned Affiliates and Associated Physician Practices is amultiple site organization consisting of ambulatory clinics and hospital sitesin [place], [place], [place] and [place]. This disclosure is being madepursuant to the Care Everywhere program and may not contain all information available regarding this patient. Last updated 17.[facility] Social History Tobacco Use Types Packs/Day Years Used Date Smoking Tobacco: Never Assessed Sex and Gender Information Value Date Recorded Sex Assigned at Not on file Gender Identity Not on file Sexual Orientation Not on file Care Teams Label Rewinder Relationship Specialty Start Date End Date Himanshu Goldberg MD [address] [facility] [address] [phone] PCP - General Family Medicine 02/12/24
--- OUTSIDE RECORDS SUMMARY | 2024-03-18 10:55 | XMS_ITS | Encounter Summary ---
Author Organization [facility] Address [address] [place] [address]. [place], [place] [address] [place] [address] Care Team Providers Care Sheet Rock Applier Name Role Phone Unavailable Primary Care Provider Unavailabl e Encounter Details Date Type Department Care Team (Late st Contact Info) Description 08/01/2005 [place] [address] Phong Jovel MD [address] [phone] Social History Tobacco Use Types Packs/Day Years Used Date Smoking Tobacco: Never Assessed Comments Unknown Sex and Gender Information Value Date Recorded Sex Assigned at Not on file Legal Sex Female 8:21 PM CDT Gender Identity Not on file Sexual Orientation Not on file documented as of this encounter Plan of Treatment Not on file documented as of this encounter Visit Diagnoses Not on filedocumented in this encounter
--- OUTSIDE RECORDS SUMMARY | 2024-03-18 10:55 | XMS_ITS | Encounter Summary ---
Author Organization [facility] Address [address] [place] [address] Care Team Providers Care Base Filler Name Role Phone Himanshu Goldberg MD Primary Care Provider Reason for Visit * Reason Onset Date Comments Reschedule Appointment 02/12/202402/11-Left message on home & cell # to reschedule 's 02/11 appt- reschedule to the next available. MyChart note entered.DL-MS Encounter Details Date Type Department Care Team (Late st Contact Info) Description 02/12/2024 Telephone [facility] - Centralized Scheduling [address] [place] [address] Gabby Ayala T, LENS ENGRAVER-DUAL RATE SUPERVISOR [address] [facility] DE[place] [address] Reschedule Appointment (02/11-Left message on home & cell # to reschedule 's 02/11 appt- reschedule to the next available. MyChart note entered.[facility]) Social History Tobacco Use Types Packs/Day Years Used Date Smoking Tobacco: Never Assessed Sex and Gender Information Value Date Recorded Sex Assigned at Not on file Gender Identity Not on file Sexual Orientation Not on file documented as of this encounter Miscellaneous Notes * Telephone Encounter - Vicenta Pacheco - 02/12/2024 8:12 AM CST My name is Kaylen, I am a [facility] Die Setter this message is regarding your appointment that was scheduled for 02/11. ASIM Ayala will not be available for that appointment. Please contact us at [phone] to be rescheduled. Thank you for choosing [facility], Kaylen Die Setter [facility] GER LOADER documented in this encounter Plan of Treatment Upcoming Encounters Date Type Department Care Team (Late st Contact Info) Description 03/18/2024 11:00 AM BLUNGER LOADER Office Visit [facility] - Urology [address] [place] [address] [address] [place] [address] Gabby Ayala, LENS ENGRAVER-DUAL RATE SUPERVISOR [address] [facility] [place] [address] documented as of this encounter Visit Diagnoses Not on filedocumented in this encounter Care Teams Base Filler Relationship Specialty Start Date End Date Himanshu Goldberg MD [address] [facility] [address] [address] PCP - General Family Medicine 02/12/24 documented as of this encounter
--- OUTSIDE RECORDS SUMMARY | 2024-03-18 10:55 | XMS_ITS | Clinical Summary ---
Author Organization [facility] Address [address] [facility] [place] [address] Care Team Providers Care Awning Frame Maker Name Role Phone Himanshu Goldberg MD Primary Care Provider Source Comments [facility],non-owned Affiliates and Associated Physician Practices is amultiple site organization consisting of ambulatory clinics and hospital sitesin [place], [place], [place] and [place]. This disclosure is being madepursuant to the Care Everywhere program and may not contain all information available regarding this patient. Last updated 17.[facility] Encounters Date Type Department Care Team Description 02/12/2024 Telephone [facility] - Centralized Scheduling [address] [place] [address] Gabby Ayala APRN-CNP Reschedule Appointment [...] st Contact Info) Description 03/18/2024 11:00 AM QUILTING MACHINE OPERATOR Office Visit [facility] - Urology [address] [facility] [address] [place] [id number] Gabby Ayala, RODNEYOPERATIONS PROGRAM MANAGER [address] [facility] DE[facility] [place] [address] Health Maintenance Due Date Last Done Comments COLOGUARD (AGES 45-75) - COL ON CA SCREENING 1969 COLON MONITORING 1969 COLONOSCOPY - COLON CA SCREENING 1969 CT COLONOGRAPHY - COLON CA SCREENING 1969 Colorectal Cancer Screening 1969 FIT - COLON CA SCREENING 1969 FLEX SIG - COLON CA SCREENING 1969 LIPID TESTING 1969 MAMMOGRAM 1969 PAP SMEAR 1969 HIV SCREENING 01/09/1984 HEPATITIS C SCREENING 01/04/1987 DTAP/TDAP/TD VACCINES (1 - Tdap) 01/09/1988 HEPATITIS B VACCINE (1 of 3 - 19+ 3-dose series) 01/09/1988 PNEUMOCOCCAL VACCINE 50+ (1 of 1 - PCV) 2019 ZOSTER VACCINE (1 of 2) 2019 COVID-19 VACCINE ( - 2023-2 5 season) 2023 INFLUENZA VACCINE (#1) 2023 DEPRESSION SCREENING 03/11/2024 HIB VACCINE Aged Out No longer eligi ble based on patient's age to complete this topic HPV VACCINE Aged Out No longer eligi ble based on patient's age to complete this topic MENINGOCOCCAL (Group B) VACCINE Aged Out No longer eligible based on patient's age to complete this topic MENINGOCOCCAL VACCINE Aged Out No clifford raquel eligible based on patient's age to complete this topic PNEUMOCOCCAL VACCINE Aged Out No long er eligible based on patient's age to complete this topic Care Teams Awning Frame Maker Relationship Specialty Start Date End Date Himanshu Goldberg MD [address] [facility] [place] [address] PCP - General Family Medicine 02/12/24
--- OUTSIDE RECORDS SUMMARY | 2024-03-18 10:55 | XMS_ITS | Encounter Summary ---
Author Organization [facility] Address [address] [place] [address]. [place] [id number] [place], [place] [id number] Care Team Providers Care Citrus Peeler Name Role Phone Unavailable Primary Care Provider Unavailabl e Encounter Details Date Type Department Care Team (Late st Contact Info) Description 01/06/2016 Abstract [facility] Family & Internal Medicine - [address] [address] Social History Tobacco Use Types Packs/Day Years [...]
--- OUTSIDE RECORDS SUMMARY | 2024-03-18 10:55 | XMS_ITS | Clinical Summary ---
Author Organization [facility] Address [address] [place] [address]. [place] [address] Care Team Providers Care Livestock Haulier Name Role Phone Unavailable Primary Care Provider Unavailabl e Social History Tobacco Use Types Packs/Day Years Used Date Smoking Tobacco: Never Assessed Comments Unknown Sex and Gender Information Value Date Recorded Sex Assigned at Not on file Legal Sex Female 8:21 PM CDT Gender Identity Not on file Sexual Orientation Not on file Plan of Treatment Health Maintenance Due Date Last Done Comments Cervical Cancer Screening Pa p Smear (Age 30 to 64) Every 3 Years 1969 Colorectal Cancer Screening Colonoscopy (10 Years) 1969 Annual Physical 01/09/1972 Hepatitis C 1987 DTaP, Tdap and Td Vaccines ( 1 - Tdap) 01/09/1988 Hepatitis B Vaccines (1 of 3 - 19+ 3-dose series) 01/09/1988 Cervical Cancer Screening Pa p with HPV Testing (Age 30 to 64) Every 5 Years 1999 Cervical Cancer Screening with HPV 1999 Mammogram Screening 2009 Zoster Vaccines (1 of 2) 2019 COVID-19 Vaccine (2023-2 5 season) 2023 Influenza Adult (#1) 2023 Meningococcal Vaccine Aged Out No clifford raquel eligible based on patient's age to complete this topic Pneumococcal Vaccine: Pediat rics (0 to 5 Years) and At-Risk Patients (6 to 64 Years) Aged Out No longer eligible b ased on patient's age to complete this topic RSV Immunizations Under 20 Months Aged Out No longer eligible based on patient's age to complete this topic Insurance * Guarantor: Keegan Barraza Account Type Relation to Patient Date of Phone Billing Address Personal/Family Self 1970 [address] [place] [address] [facility] [employer]
== END 2024-03-11 15:49 | disposition short-term general hospital (02) ==
PROVIDERS: Emergency Provider Emergency Medicine; PCP Family Medicine
DX: S52.121A Displaced fracture of head of right radius, initial encounter for closed fracture (principal); N30.00 Acute cystitis without hematuria; R55 Syncope and collapse; W18.39XA Other fall on same level, initial encounter; F17.290 Nicotine dependence, other tobacco product, uncomplicated
CPT/HCPCS: 36415; 70450; 71275; 72125; 73080; 73090; 73564; 80053; 81001; 83880; 84484; 85025; 85380; 85610; 85730; 87086; 93005; 99285; A4565; A9270; Q9967

== ENCOUNTER 2024-05-13 01:07 | Day surgery (SDC) | payer OTHER, SELFPAY ==
[2024-04-29 14:41] VITALS: BMI 46.6
[2024-05-13 06:10] VITALS: BP 156/101; PULSE 65; RESP 20; TEMP 36.2; O2SAT 97; BMI 46.6
[2024-05-13] MEDS: LACTATED RINGERS 1,000 ML 150 ML IV CONT (06:30)
--- NOTE | 2024-05-13 07:00 | WPDANESEPPF ---
Anes - Initial Pre Proc Eval Procedure: Operation Date: 05/13/24 07:30 Proposed Procedures p Screening Colonoscopy - Jose Leary MD Date/Time: 05/13/24 07:00 Surgeon: Jose Leary MD Pre Op Diagnosis: screening colon Patient Data Age: 54 Gender: F Height: 1.68 m Weight: 131 kg Last Vital Signs Temp 36.2 C L 05/13/24 06:10 Pulse 65 05/13/24 06:10 Resp 20 05/13/24 06:10 BP 156/101 H 05/13/24 06:10 Pulse Ox 97 05/13/24 06:10 O2 Del Method Room Air 05/13/24 06:10 Allergies Allergy/AdvReac Type Severity Reaction Status Date / Time morphine Allergy Unknown Unknown Verified 05/13/24 06:17 Sulfa (Sulfonamide Allergy Hives Verified 05/13/24 06:17 Antibiotics) Home Medications ?Medication ?Instructions ?Recorded ?Confirmed ?Type acetaminophen 500 mg tablet 1,000 mg (2 x 500 mg) PO TID PRN 08/14/23 04/29/24 Rx erika 7 days #42 tabs levothyroxine 50 mcg tablet 50 mcg PO DAILY #90 tabs 02/03/24 05/13/24 Rx buspirone 10 mg tablet 10 mg PO BID #180 tabs 02/11/24 05/13/24 Rx diclofenac sodium 75 mg See Rx Instructions .Route 02/26/24 05/13/24 Rx tablet,delayed release .COMPLEX #180 tabs paroxetine HCl 40 mg tablet (Paxil) 40 mg PO DAILY #90 tabs 03/03/24 05/13/24 Rx hydrocodone 5 mg-acetaminophen 325 1 tablet PO Q8H PRN pain #15 tabs 03/11/24 04/29/24 Rx mg tablet omeprazole 20 mg capsule,delayed 20 mg PO DAILY #90 caps 04/02/24 05/13/24 Rx release lorazepam 1 mg tablet 1 mg PO BID-TID #90 tabs 04/23/24 05/13/24 Rx amlodipine 5 mg tablet See Rx Instructions .Route 05/11/24 05/13/24 Rx .COMPLEX #90 tabs ropinirole 1 mg tablet See Rx Instructions .Route 03/03/25 03/05/25 Rx .COMPLEX #90 tabs Patient hx anesthesia problems: none Family hx anesthesia problems: none Results Review: All pre-operative results and documents have been reviewed as part of the pre-operative evaluation. [facility] Past Medical History Medical History Essential (primary) hypertension Depression Obesity RLS (restless legs syndrome) Fracture of fifth metatarsal bone of right foot Asthma Hypothyroidism Spinal stenosis of lumbar region with neurogenic claudication GERD (gastroesophageal reflux disease) Anxiety Surgical History Surgical History Status post right foot surgery H/O: hysterectomy 1999 History of partial hysterectomy 1997 delivered by caesarean section, 1,000-1,249 grams, 29-30 completed weeks 1993 delivered by caesarean section, 1,000-1,249 grams, 29-30 completed weeks 1991 Family History Family History Mother Hypertension Family history of heart disease in male family member before age 55 Patient's mother is in good health Cerebrovascular accident Family history of type 2 diabetes mellitus Father Family history of heart disease in male family member before age 55 Sibling Patient's brother is in good health Mother Diabetes mellitus Hypertension Asthma Father Family history of alcoholism Other Family history of cardiovascular disease Social History Social History Social History: -live alone with grand-daughter. Smoking status: Current every day smoker Tobacco type: e-cigarettes/vaping Second hand tobacco smoke exposure: No Smoking end date: 03/11/14 Alcohol intake: current Alcohol use details: 1/2 glass wine, twice a year Substance use: never Substance use type: does not use Other substance usage details: gummies at HS Lack of Transportation: No Lack of Food: Never True Current Housing: I Have Housing Concerned About Future Housing: No Difficulty Paying Gas/Electric Bills: No Difficulty Paying for Meds: No Currently Unemployed: No Education: High School Diploma/GED Difficulty w/ Childcare or Family Care: No Living arrangements: with family 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 Gender identity (if verbalized by the patient): Female Sexual Orientation (if Verbalized by the Patient): Lesbian, Suero, or Homosexual Spiritual care concerns: No Agree to blood products: Yes Anes - Eval Final PreProcedure Day of Procedure 05/13/24 07:00 Patient weight: morbidly obese Heart: regular rate and rhythm Lungs: clear to auscultation Airway: Mallampati scale class III Neurological: alert and oriented Last oral intake: >/= 8 hours ASA classification: III Emergent: no Anesthetic plan: proceed Anesthesia type and monitoring: general GIVS and standard monitoring Results Review: All pre-operative results and documents have been reviewed as part of the pre-operative evaluation. Informed Consent: The patient's anesthetic plan and its attendant risks and benefits were discussed with the patient/family/POA. Questions were solicited and answers provided to the satisfaction of the patient/family/POA.
--- NOTE | 2024-05-13 07:30 | PM.HPGS ---
History of Present Illness History of Present Illness Consent: Risks, benefits, and alternatives have been discussed and questions answered. Patient agrees to proceed with procedure. Chief complaint: screening colon Narrative: Keegan Barraza is a 54 year old female here for first screening colonoscopy Review of Systems Review of Systems: All systems reviewed & are unremarkable except as noted in HPI and below PMFSH Past Medical History Medical History (Updated 05/13/24 @ 07:31 by Jose Leary MD) Colon cancer screening Essential (primary) hypertension Depression Obesity RLS (restless legs syndrome) Fracture of fifth metatarsal bone of right foot Asthma Hypothyroidism Spinal stenosis of lumbar region with neurogenic claudication GERD (gastroesophageal reflux disease) Anxiety Surgical History Surgical History Status post right foot surgery H/O: hysterectomy 2000 History of partial hysterectomy 1997 delivered by caesarean section, 1,000-1,249 grams, 29-30 completed weeks 1993 delivered by caesarean section, 1,000-1,249 grams, 29-30 completed weeks 1991 Family History Family History Mother Hypertension Family history of heart disease in male family member before age 55 Patient's mother is in good health Cerebrovascular accident Family history of type 2 diabetes mellitus Father Family history of heart disease in male family member before age 55 Sibling Patient's brother is in good health Mother Diabetes mellitus Hypertension Asthma Father Family history of alcoholism Other Family history of cardiovascular disease Social History Social History Social History: -live alone with grand-daughter. Smoking status: Current every day smoker Tobacco type: e-cigarettes/vaping Second hand tobacco smoke exposure: No Smoking end date: 03/11/14 Alcohol intake: current Alcohol use details: 1/2 glass wine, twice a year Substance use: never Substance use type: does not use Other substance usage details: gummies at HS Lack of Transportation: No Lack of Food: Never True Current Housing: I Have Housing Concerned About Future Housing: No Difficulty Paying Gas/Electric Bills: No Difficulty Paying for Meds: No Currently Unemployed: No Education: High School Diploma/GED Difficulty w/ Childcare or Family Care: No Living arrangements: with family 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 Gender identity (if verbalized by the patient): Female Sexual Orientation (if Verbalized by the Patient): Lesbian, Suero, or Homosexual Spiritual care concerns: No Agree to blood products: Yes Meds Home Medications and Allergies Home Medications ?Medication ?Instructions ?Recorded ?Confirmed ?Type acetaminophen 500 mg tablet 1,000 mg (2 x 500 mg) PO TID PRN 08/14/23 04/29/24 Rx erika 7 days #42 tabs levothyroxine 50 mcg tablet 50 mcg PO DAILY #90 tabs 02/03/24 05/13/24 Rx buspirone 10 mg tablet 10 mg PO BID #180 tabs 02/11/24 05/13/24 Rx diclofenac sodium 75 mg See Rx Instructions .Route 02/26/24 05/13/24 Rx tablet,delayed release .COMPLEX #180 tabs paroxetine HCl 40 mg tablet (Paxil) 40 mg PO DAILY #90 tabs 03/03/24 05/13/24 Rx hydrocodone 5 mg-acetaminophen 325 1 tablet PO Q8H PRN pain #15 tabs 03/11/24 04/29/24 Rx mg tablet omeprazole 20 mg capsule,delayed 20 mg PO DAILY #90 caps 04/02/24 05/13/24 Rx release lorazepam 1 mg tablet 1 mg PO BID-TID #90 tabs 04/23/24 05/13/24 Rx amlodipine 5 mg tablet See Rx Instructions .Route 05/11/24 05/13/24 Rx .COMPLEX #90 tabs ropinirole 1 mg tablet See Rx Instructions .Route 05/11/24 05/13/24 Rx .COMPLEX #90 tabs Allergies Allergy/AdvReac Type Severity Reaction Status Date / Time morphine Allergy Unknown Unknown Verified 05/13/24 06:17 Sulfa (Sulfonamide Allergy Hives Verified 05/13/24 06:17 Antibiotics) Vital Signs Vital Signs - 24 hr 05/13/24 06:10 Temperature 97.2 F L Pulse Rate 65 Respiratory Rate 20 Blood Pressure 156/101 H Pulse Oximetry 97 Oxygen Delivery Room Air Exam Const: General: comfortable and no acute distress HENMT: Face/Nose/Sinus: Normal nares present Eyes: General: appearance normal, both eyes and all related structures Neck: Neck: no JVD Resp: Auscultation: clear to auscultation bilaterally Cardio: Rate: regular rate Rhythm: regular rhythm GI: Inspection: non-distended GI Palp: Yes Soft to palpation Skin: General skin exam: normal color Neuro: General: gait normal Speech: normal speech Extrem: General: normal to inspection Psych: Mental Status: mental status grossly normal Assessment and Plan Assessment and plan (1) Colon cancer screening: Code(s): Z12.11 - Encounter for screening for malignant neoplasm of colon Status: Acute Assessment and Plan: colonoscopy
[2024-05-13 07:46] VITALS: BP 104/69; PULSE 58; RESP 21; O2SAT 95
[2024-05-13 07:56] VITALS: BP 109/54; PULSE 55; RESP 22; O2SAT 100
[2024-05-13 08:06] VITALS: BP 107/66; PULSE 55; RESP 18; O2SAT 100
== END 2024-05-13 08:15 | disposition home or self-care (01) ==
PROVIDERS: PCP Family Medicine; Referring Provider Family Medicine; Visit Provider Internal Medicine Gastroenterology
PROC: 0DJD8ZZ Inspection of Lower Intestinal Tract, Via Natural or Artificial Opening Endoscopic (ICD-10-PCS; CPT 45378; principal; 2024-05-13 07:30)
DX: Z12.11 Encounter for screening for malignant neoplasm of colon (principal); K64.8 Other hemorrhoids; K57.30 Diverticulosis of large intestine without perforation or abscess without bleeding; E03.9 Hypothyroidism, unspecified; I10 Essential (primary) hypertension; J45.909 Unspecified asthma, uncomplicated; M48.062 Spinal stenosis, lumbar region with neurogenic claudication; K21.9 Gastro-esophageal reflux disease without esophagitis; F41.9 Anxiety disorder, unspecified; F32.A Depression, unspecified; G25.81 Restless legs syndrome; F12.90 Cannabis use, unspecified, uncomplicated; F17.290 Nicotine dependence, other tobacco product, uncomplicated; E66.01 Morbid (severe) obesity due to excess calories; Z68.42 Body mass index [BMI] 45.0-49.9, adult; Z79.891 Long term (current) use of opiate analgesic; Z98.890 Other specified postprocedural states; Z82.49 Family history of ischemic heart disease and other diseases of the circulatory system
CPT/HCPCS: 45378; J2003; J2704; J7120

== ENCOUNTER 2024-05-28 12:30 | Outpatient (RCR) | payer OTHER, SELFPAY ==
--- NOTE | 2024-05-06 09:17 | OPREHPOC ---
Outpatient Therapy Plan of Care This is a Multidisciplinary Plan of Care that may contain components documented by all disciplines (PT, OT, and ST.) PT Problem 1 PT Problem #1 Knowledge Deficit PT Goal 1 Goal / Goal Update 1. Pt to be IND with issued HEP PT Problem 2 PT Problem #2 Pain PT Goal 1 Goal / Goal Update 1. Pt to report knee pain no greater than 5/10 in the last week. 2. Pt to report being able to walk through the grocery store without needing to rest. 3. Pt to report no increase in leg pain after house work. Target Visit 10 PT Problem 3 PT Problem #3 Impaired Gait PT Goal 1 Goal / Goal Update 1. Pt to improved 2 min walk distance from 280ft to 350ft. 2. Pt to ambulate with neutral LE alignment. Target Visit 10
--- NOTE | 2024-05-06 09:17 | PTOPEVAL1 ---
Assessment and note entered by Evelia Prescott, PT, DPT Evaluation Information Assessment Status Evaluation Diagnosis L knee pain, R knee pain ICD-10 Condition Codes (PT) Pain in right knee M25.561,Pain in left knee M25. 562 Subjective Information Pt reports 3 recent falls in the last 3 month, she states in the last one she believes she passed out. In her last fall she broke her elbow. States both knee L>R are swollen, feels weak, and has sharp and shooting pains. States at times her legs will go numb, states she cannot walk for longer than a few minutes because of this or she will fall. Reported Pain Level Pain Score 9,7: Self Report Assessment PT Clinical Summary Pt presents to therapy today for her initial evaluation with a diagnosis of amanda knee pain, imaging shows severe tricompartmental arthritis. Today she demonstrates gait deviations including a decreased gait speed, decreased stride length, LLE external rotation, and mild antalgic pattern. She demonstrates decreased functional strength, requiring UE support for stair ambulation and sit to stand transfers from a chair. Pain limits her ability to clean her home and run errands without having to take lots of breaks. Skilled therapy services are indicated to address the deficits noted above, to manage pain, and to improve overall functional mobility. Plan of Care Interventions Electrical Stimulation,Gait Training,Hot Pack/Cold Pack,Manual Therapy,Neuro Re-education,Patient/ Caregiver Education,Therapeutic Activities, Therapeutic Exercise PT Services Indicated Yes Treatment Frequency and 2x/wk for 8 visits Duration These treatments will address the objective and functional deficits as defined above. The patient will be advanced safely and appropriately in order for the patient to progress towards his/her prior level of function. Additional exercises will be introduced and as well as a comprehensive home exercise program upon discharge, if needed, ?to ensure carryover of functional gains achieved in the clinic. This treatment plan has been reviewed and agreement upon by the patient.
--- NOTE | 2024-05-18 13:29 | PCPTNOTE ---
Patient called & cancelled scheduled appointment this date due to her daughter being sick.
--- NOTE | 2024-05-20 08:04 | PCPTNOTE ---
Patient called & cancelled scheduled appointment this date via text, no reason given.
--- NOTE | 2024-05-25 13:54 | PCPTNOTE ---
Patient did not show up for scheduled appointment this date. Called and spoke to pt, states she had a family emergency and forgot to call. Confirmed her next appointment.
--- NOTE | 2024-06-01 10:51 | PCPTNOTE ---
Patient did not show up for scheduled appointment this date. Called and LVM to remind of next appointment.
--- NOTE | 2024-06-02 08:30 | PTOPDC ---
Assessment and note entered by Evelia Prescott, PT, DPT Evaluation Information Assessment Status Discharge - Pt Not Present Diagnosis L knee pain, R knee pain ICD-10 Condition Codes (PT) Pain in right knee M25.561,Pain in left knee M25. 562 Subjective Information Pt called and cancelled her remaining therapy appointments. States she has a lot of family stuff going on and cannot commit the time to therapy. Assessment PT Clinical Summary Pt completed 3 visits of skilled therapy, will be discharged at this time per her request.
== END 2024-07-06 13:51 | disposition home or self-care (01) ==
LOC: ANHGOSHPT 12:30
PROVIDERS: PCP Family Medicine; Visit Provider Family Medicine
DX: M25.561 Pain in right knee (principal); M25.562 Pain in left knee
CPT/HCPCS: 97110; 97140; 97161; 97530

== ENCOUNTER 2024-09-16 11:29 | Outpatient (CLI) | payer OTHER, SELFPAY ==
--- OUTSIDE RECORDS SUMMARY | 2024-09-16 11:33 | XMS_ITS | Referral Summary ---
Author Organization [facility] Address [address] [place] [address] Care Team Providers Care Hands Hanger Name Role Phone No, Physician Primary Care Provider [phone] Allergies Active Allergy Reactions Criticality Noted Date Comments Morphine Nausea & Vomiting Low 03/11/2024 Tramadol Nausea & Vomiting Low 04/20/[address] (VOLTAREN) 75 mg EC tablet Take 1 tablet (75 mg total) by mouth 2 (two) times a day 02/26/2024 Active rOPINIRole (REQUIP) 1 mg tablet Take 1 tablet (1 mg total) by mouth nightly at bedtime 02/11/2024 Active amLODIPine (NORVASC) 5 mg tablet Take 1 tablet (5 mg total) by mouth daily 02/11/2024 Active omeprazole (PriLOSEC) 20 mg capsule Take 1 capsule (20 mg total) by mouth daily 04/02/2024 Active busPIRone (BUSPAR) 10 mg tablet Take 1 tablet (10 mg total) by mouth 2 (two) times a day 02/11/2024 Active LORazepam (ATIVAN) 1 mg tablet TAKE 1 TABLET BY MOUTH 2 TO 3 TIMES DAILY 03/10/2024 Active PARoxetine (PAXIL) 40 mg tablet Take 1 tablet (40 mg total) by mouth daily 03/07/2024 Active acetaminophen (TYLENOL) 500 mg tablet Take 2 tablets (1,000 mg total) by mouth every 6 (six) hours as needed for pain Active ibuprofen 200 mg tab/cap Take 4 tablet/capsu le (800 mg total) by mouth every 6 (six) hours as needed for pain Active Active Problems Patient Care Coordination No te Formatting of this note migh t be different from the original. Mechanism of Injury: Syncopal fall Dx: R intra-articular radial head fx PMHx: HTN, hypothyroidism, bilateral knee OA, anxiety Surgeries: Non Op Last Clinic Visit: 04/20/24 [facility]AT. Return to clinic in 1.5 months with repeat radiographs Pain management: Continue kjlt-yrb-iisaihd medications DVT prophylaxis: None Splinting/bracing/casting: Discontinue sling Physical therapy: Script given for range of motion and isotonic strengthening, as well as her extension deficit Upcoming Clinic Visit: 04/20/24 [facility]AT XR's Left Elbow (Orders Placed) Does Insurance Qualify for In Clinic PT? No [facility] No known active problems Social History Tobacco Use Types Packs/Day Years Used Date Smoking Tobacco: Some Days Vaping Tobacco Cessation:Ready to Q uit: Not Asked; Counseling Given: Not Answered Comments:Former cigarette Hunger Vital Sign Answer Date Recorded Within the past 12 months, y ou worried that your food would run out before you got the money to buy more. Never true 04/20/19 25 Within the past 12 months, t he food you bought just didn't last and you didn't have money to get more. Never true 04/20/2024 Personal Safety Answer Date Recorded Have you ever been in or are you currently in a harmful physical or emotional relationship or is someone making you feel afraid or unsafe? Denies 03/11/2024 Comments Unknown Sex and Gender Information Value Date Recorded Sex Assigned at Not on file Legal Sex Female 3:51 AM SADDLE LINING STITCHER Gender Identity Not on file Sexual Orientation Not on file Last Filed Vital Signs Vital Sign Reading Time Taken Comments Blood Pressure 159/109 03/11/2024 4:57 PM SADDLE LINING STITCHER Pulse 70 03/11/2024 4:57 PM SADDLE LINING STITCHER Temperature 36.4 C (97.5 F) 03/11/2024 4:57 PM SADDLE LINING STITCHER Respiratory Rate 18 03/11/2024 4:57 PM SADDLE LINING STITCHER Oxygen Saturation 95% 03/11/2024 4:57 PM SADDLE LINING STITCHER Inhaled Oxygen Concentration - - Weight 129.3 kg (285 lb) 03/11/2024 4:57 PM SADDLE LINING STITCHER Height 167.6 cm (5' 6) 03/11/2024 4:57 PM SADDLE LINING STITCHER Body Mass Index 46 03/11/2024 4:57 PM SADDLE LINING STITCHER Plan of Treatment Not on file Insurance [facility] Care Teams Hands Hanger Relationship Specialty Start Date End Date No, Physician PCP - General 03/11/24
--- OUTSIDE RECORDS SUMMARY | 2024-09-16 11:33 | XMS_ITS | Clinical Summary ---
Author Organization [facility] Address [address] [place] [address] Care Team Providers Care Resolution Expert Name Role Phone Unavailable Primary Care Provider [...] Screening with HPV 1999 Mammogram Screening 2009 Pneumococcal Vaccine: 50+ Ye ars (1 of 1 - PCV) 2019 Zoster Vaccines (1 of 2) 2019 COVID-19 Vaccine ( - 2023-2 5 season) 2023 Meningococcal B Vaccine Aged Out No l onger eligible based on patient's age to complete this topic Meningococcal Vaccine Aged Out No clifford raquel eligible based on patient's age to complete this topic RSV Immunizations Under 20 Months Aged Out No longer eligible based on patient's age to complete this topic Insurance * Guarantor: Keegan Barraza Account Type Relation to Patient Date of Phone Billing Address Personal/Family Self 1970 [address], [address] [place] [address] [employer]
--- OUTSIDE RECORDS SUMMARY | 2024-09-16 11:33 | XMS_ITS | Clinical Summary ---
Author Organization [facility] Address [address] [place] [address] Care Team Providers Care Machine Operator Picker Name Role Phone Himanshu Goldberg MD Primary Care Provider Source Comments [facility],non-owned Affiliates and Associated Physician Practices is amultiple site organization consisting of ambulatory clinics and hospital sitesin [place], [place], [place] and [place]. This disclosure is being madepursuant to the Care Everywhere program and may not contain all information available regarding this patient. 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 Gender Identity Not on file Sexual Orientation [...] SCREENING 1970 LIPID TESTING 1970 MAMMOGRAM 1969 HIV SCREENING 01/09/1984 HEPATITIS C SCREENING 01/04/1987 DTAP/TDAP/TD VACCINES (1 - Tdap) 01/09/1988 HEPATITIS B VACCINE (1 of 3 - 19+ 3-dose series) 01/09/1988 PAP SMEAR 1990 PNEUMOCOCCAL VACCINE 50+ (1 of 1 - PCV) 2019 ZOSTER VACCINE (1 of 2) 2019 COVID-19 VACCINE ( - 2023-2 5 season) 2023 DEPRESSION SCREENING 03/11/2024 INFLUENZA VACCINE (Season Ended) 2024 HIB VACCINE Aged Out No longer eligi ble based on patient's age to complete this topic HPV VACCINE Aged Out No longer eligi ble based on patient's age to complete this topic MENINGOCOCCAL (Group B) VACC INE SHARED DECISION-MAKING Aged Out No longer eligibl e based on patient's age to complete this topic MENINGOCOCCAL GROUPS A/C/Y/W VACCINE Aged Out No longer eligible b ased on patient's age to complete this topic Insurance [facility] Care Teams Machine Operator Picker Relationship Specialty Start Date End Date Himanshu Goldberg MD [id number] [place] [address] [place] [id number] PCP - General Family Medicine 02/12/24
--- OUTSIDE RECORDS SUMMARY | 2024-09-16 11:33 | XMS_ITS | Clinical Summary ---
Author Organization [facility] al Address [address] [place] [address] Care Team Providers Care Electroencephalographic Technician Name Role Phone No, Physician Primary Care Provider [phone] Allergies Active Allergy Reactions Criticality Noted Date [...] months with repeat radiographs Pain management: Continue bucb-ewj-[id number] medications DVT prophylaxis: None Splinting/bracing/casting: Discontinue sling Physical therapy: Script given for range of motion and isotonic strengthening, as well as her extension deficit Upcoming Clinic Visit: 04/20/24 [facility]AT XR's Left Elbow (Orders Placed) Does Insurance Qualify for In Clinic PT? 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 Gender Identity Not on file Sexual Orientation Not on file Obstetrics History Last Filed Vital Signs Vital Sign Reading Time Taken Comments Blood Pressure 159/109 03/11/2024 4:57 PM CONSTRUCTION WORKER Pulse 70 03/11/2024 4:57 PM CONSTRUCTION WORKER Temperature 36.4 C (97.5 F) 03/11/2024 4:57 PM CONSTRUCTION WORKER Respiratory Rate 18 03/11/2024 4:57 PM CONSTRUCTION WORKER Oxygen Saturation 95% 03/11/2024 4:57 PM CONSTRUCTION WORKER Inhaled Oxygen Concentration - - Weight 129.3 kg (285 lb) 03/11/2024 4:57 PM CONSTRUCTION WORKER Height 167.6 cm (5' 6) 03/11/2024 4:57 PM CONSTRUCTION WORKER Body Mass Index 46 03/11/2024 4:57 PM CONSTRUCTION WORKER Plan of Treatment Health Maintenance Due Date Last Done Comments Breast Cancer Screening-Mammogram 1970 Cervical Cancer Screening 1970 Colon Cancer Screening-Colonoscopy 1969 Depression Screening 1969 Hepatitis C Screening 1969 DTaP/Tdap/Td Vaccine (1 - Tdap) 01/09/1980 Hepatitis B Screening 1987 Regular Well Visit/Exam 18-64 1987 Zoster Vaccine (1 of 2) 2019 Covid-19 Vaccine Completed 01/17/2024, , 05/26/2022, Additional history exists Influenza Vaccine Completed 01/17/2024 Pneumococcal vaccine <65 Completed 01/17/2024 Insurance [facility] Care Teams Electroencephalographic Technician Relationship Specialty Start Date End Date No, Physician PCP - General 03/11/24
[2024-09-16 20:15] LABS: Thyroid Stimulating Hormone Reflex 2.700 uIU/mL (0.465-4.68)
[2024-09-16 20:29] LABS: Add Urine Microscopic? YES; Appearance Urine Cloudy (Clear); Glucose Urine UA Negative (Negative); Leukocyte Esterase Ur 3+ LEU/UL (Negative); Need Manual Microscopic Reviewed; Nitrate Urine Negative (Negative); Non Pathogenic Casts 0-2; Specific Grav Ur 1.018 (1.001-1.035)
[2024-09-16 21:05] LABS: Alanine Aminotransferase 26 U/L (6-35); Albumin Level 4.2 g/dL (3.5-5.1); Alkaline Phosphatase 89 U/L (38-126); Anion Gap 6 mmol/L (4-12); Aspartate Amino Transferase 31 U/L (14-36); Bilirubin,Total 0.4 mg/dL (0.2-1.3); Blood Urea Nitrogen 12 mg/dL (7-17); Calcium 9.3 mg/dL (8.4-10.2); Carbon Dioxide 28 mmol/L (22-30); Chloride 104 mmol/L (98-107); Cholesterol 266 mg/dL (0-200); Estimated Glomerular Filt Rate 54; Glucose 99 mg/dL (65-110); HDL Direct 45 mg/dL; Potassium 4.3 mmol/L (3.4-5.0); Sodium 138 mmol/L (137-145); Total Protein 8.0 g/dL (6.3-8.2); Triglycerides 124 mg/dL (<150)
[2024-09-16 21:55] LABS: Vitamin B12 292.0 pg/mL (239-931)
== END 2024-09-16 11:30 | disposition home or self-care (01) ==
LOC: ANHGOSHLAB 11:31
PROVIDERS: PCP Family Medicine; Visit Provider Family Medicine
DX: R30.0 Dysuria (principal); E55.9 Vitamin D deficiency, unspecified; E78.5 Hyperlipidemia, unspecified; I10 Essential (primary) hypertension; E03.9 Hypothyroidism, unspecified; E53.8 Deficiency of other specified B group vitamins
CPT/HCPCS: 36415; 80053; 80061; 81001; 82306; 82607; 84443; 87086